=== PATIENT | male | born 1995 | race Caucasian/White ===

== ENCOUNTER 2017-07-02 16:02 | Emergency (ER) | payer OTHER, SELFPAY ==
[~2017-07-02] VITALS: Ht 180.3 cm; Wt 73.0 kg
[2017-07-02] MEDS ORDERED: diazePAM 5 MG TAB PO ONE (16:30)
[2017-07-02] MEDS ORDERED: NAPROXEN 250 MG TAB PO ONE (16:30)
[2017-07-02] MEDS ORDERED: CYCL10TA PO (17:37)
[2017-07-02] MEDS ORDERED: NAPR500T PO (17:37)
[2017-07-02 17:51] VITALS: BP 119/65
--- NOTE | 2017-07-02 17:57 | REP ---
CERVICAL SPINE, FOUR VIEWS: HISTORY: Neck pain. There is no acute fracture or subluxation. The intervertebral discs are normal in height. IMPRESSION:There is no acute fracture or subluxation. Signed by Joseph Price MD 07/02/2017 06:24 P
== END 2017-07-02 17:54 | disposition home or self-care (01) ==
LOC: M ED 16:02
DX: S16.1XXA Strain of muscle, fascia and tendon at neck level, initial encounter (principal); V43.52XA Car driver injured in collision with other type car in traffic accident, initial encounter; Y92.410 Unspecified street and highway as the place of occurrence of the external cause; Y93.9 Activity, unspecified; Y99.9 Unspecified external cause status; F17.200 Nicotine dependence, unspecified, uncomplicated

== ENCOUNTER 2017-12-20 12:55 | Emergency (ER) | payer SELFPAY ==
[2017-12-20 14:24] LABS: INFLUENZA A AMPLIFICATION POSITIVE (NEGATIVE); INFLUENZA B AMPLIFICATION NEGATIVE (NEGATIVE)
[2017-12-20] MEDS ORDERED: OSELTAMIVIR 6 MG/ML SUSP PO ×2 (14:45)
[2017-12-20] MEDS: OSELTAMIVIR PHOSPHATE 75 MG CAP (TAMIFLU) PO ×4 (15:04→18:57)
[2017-12-20] MEDS: ACETAMINOPHEN TAB 650MG DOSE (2X325MG) PO ×4 (15:04→18:58)
[2017-12-20] MEDS: ONDANSETRON 4MG/2ML VIAL (J2405) IV ×2 (15:54)
[2017-12-20] MEDS: NS 1,000 ML IV ×2 (15:54)
== END 2017-12-20 20:27 | disposition home or self-care (01) ==
LOC: M ED 12:55
DX: J09.X2 Influenza due to identified novel influenza A virus with other respiratory manifestations (principal); R11.10 Vomiting, unspecified; R51 Headache; E86.0 Dehydration; J45.909 Unspecified asthma, uncomplicated; F17.200 Nicotine dependence, unspecified, uncomplicated
CPT/HCPCS: J2405

== ENCOUNTER 2018-11-03 17:19 | Emergency (ER) | payer SELFPAY ==
[~2018-11-03] VITALS: Ht 177.8 cm; Wt 72.7 kg
[~2018-11-03 17:19] MED LIST: CYCL10TA PO; NAPR-50 PO; OSEL75CA PO; PROM25TA12 GT; PROM25TA12 OR
[2018-11-03] MEDS ORDERED: NICOTINE 21MG/24HR 1 EA TRANSDERMAL TD ONE (18:00)
[2018-11-03 18:16] LABS: HEMATOCRIT 50.7 % (42.0-52.0); HEMOGLOBIN 17.2 g/dl (13.5-17.5); MEAN CORPUSCULAR HEMOGLOBIN 30.9 pg (27.0-33.0); MEAN CORPUSCULAR HGB CONC 33.9 g/dl (32.0-36.5); PLATELET COUNT, AUTOMATED 173 10^3/uL (150-450); RED BLOOD COUNT 5.57 10^6/uL (4.30-6.10); WHITE BLOOD COUNT 8.2 10^3/uL (4.0-10.0)
[2018-11-03 18:44] LABS: AMPHETAMINES LEVEL URINE NEGATIVE (NEGATIVE); BARBITURATES URINE NEGATIVE (NEGATIVE); BENZODIAZEPINES URINE NEGATIVE (NEGATIVE); CANNABINOIDS URINE POSITIVE (NEGATIVE); COCAINE METABOLITE URINE NEGATIVE (NEGATIVE); METHADONE URINE NEGATIVE (NEGATIVE); OPIATES URINE NEGATIVE (NEGATIVE); PHENCYCLIDINE URINE NEGATIVE (NEGATIVE)
[2018-11-03 19:10] LABS: ACETAMINOPHEN LEVEL < 2.0 UG/ML (10.0-30.0); ALBUMIN 4.1 GM/DL (3.2-5.2); ALT/SGPT 19 U/L (12-78); BILIRUBIN,DIRECT 0.4 MG/DL (0.0-0.2); BILIRUBIN,TOTAL 1.2 MG/DL (0.2-1.0); BLOOD UREA NITROGEN 14 MG/DL (7-18); CALCIUM LEVEL 8.7 MG/DL (8.5-10.1); CARBON DIOXIDE LEVEL 29 MEQ/L (21-32); CHLORIDE LEVEL 106 MEQ/L (98-107); CREATININE FOR GFR 0.97 MG/DL (0.70-1.30); ETHYL ALCOHOL (ETHANOL) < 0.003 % (0.000-0.010); GLOMERULAR FILTRATION RATE > 60.0 (>60); GLUCOSE, FASTING 85 MG/DL (70-100); POTASSIUM SERUM 3.7 MEQ/L (3.5-5.1); SALICYLATE LEVEL < 1.7 MG/DL (5.0-30.0); SODIUM LEVEL 142 MEQ/L (136-145); THYROID STIMULATING HORMONE 0.718 uIU/ML (0.358-3.740)
[2018-11-03 19:32] VITALS: BP 122/72
--- NOTE | 2018-11-04 16:59 | ECGEPIP ---
Stationary ECG Study [facility] - ED Test Date: 2018-11-03 Pat Name: JESSE ROBERT Department: Room: - Gender: M Clinical Resource Coordinator: kyrie : 1995 Requested By: DAVI JORDAN Order Number: [id number] Reading MD: Sarina Rodriguez Measurements Intervals [place] Rate: 56 P: SC: 0 QRS: 87 QRSD: 96 T: 63 QT: 389 QTc: 378 Interpretive Statements SINUS BRADYCARDIA ABNORMAL RHYTHM ECG Electronically Signed On 11-04-2018 16:59:31 EST by Sarina Rodriguez
== END 2018-11-03 19:33 | disposition home or self-care (01) ==
LOC: M ED 17:19
DX: R45.851 Suicidal ideations (principal); F32.9 Major depressive disorder, single episode, unspecified; F17.210 Nicotine dependence, cigarettes, uncomplicated
CPT/HCPCS: 80048; 80076; 80307; 84443; 85027; 93005; 99284; G0480

== ENCOUNTER 2020-04-25 01:47 | Inpatient (IN) | payer SELFPAY ==
[~2020-04-25] VITALS: Ht 177.8 cm; Wt 72.7 kg
[~2020-04-25 01:47] MED LIST changes: +CYCL-707 PO; -CYCL10TA PO; -NAPR-50 PO; +NAPR-837 PO
[2020-04-25 02:23] LABS: HEMATOCRIT 55.4 % (42.0-52.0); HEMOGLOBIN 18.7 g/dl (13.5-17.5); MEAN CORPUSCULAR HEMOGLOBIN 31.3 pg (27.0-33.0); MEAN CORPUSCULAR HGB CONC 33.8 g/dl (32.0-36.5); MEAN CORPUSCULAR VOLUME 92.6 fl (80.0-96.0); PLATELET COUNT, AUTOMATED 220 10^3/uL (150-450); RED BLOOD COUNT 5.98 10^6/uL (4.30-6.10); WHITE BLOOD COUNT 11.7 10^3/uL (4.0-10.0)
[2020-04-25 02:40] LABS: AMPHETAMINES LEVEL URINE NEGATIVE (NEGATIVE); BARBITURATES URINE NEGATIVE (NEGATIVE); BENZODIAZEPINES URINE NEGATIVE (NEGATIVE); CANNABINOIDS URINE POSITIVE (NEGATIVE); COCAINE METABOLITE URINE NEGATIVE (NEGATIVE); METHADONE URINE NEGATIVE (NEGATIVE); OPIATES URINE NEGATIVE (NEGATIVE); PHENCYCLIDINE URINE NEGATIVE (NEGATIVE)
[2020-04-25 02:55] LABS: ACETAMINOPHEN LEVEL < 2.0 UG/ML (10.0-30.0); ALBUMIN 4.2 GM/DL (3.2-5.2); ALT/SGPT 19 U/L (12-78); BILIRUBIN,DIRECT 0.3 MG/DL (0.0-0.2); BILIRUBIN,TOTAL 0.6 MG/DL (0.2-1.0); BLOOD UREA NITROGEN 14 MG/DL (7-18); CALCIUM LEVEL 9.2 MG/DL (8.5-10.1); CARBON DIOXIDE LEVEL 27 MEQ/L (21-32); CHLORIDE LEVEL 109 MEQ/L (98-107); ETHYL ALCOHOL (ETHANOL) < 0.003 % (0.000-0.010); GLOMERULAR FILTRATION RATE > 60.0 (>60); GLUCOSE, FASTING 137 MG/DL (70-100); POTASSIUM SERUM 3.6 MEQ/L (3.5-5.1); SALICYLATE LEVEL 2.6 MG/DL (5.0-30.0); SODIUM LEVEL 140 MEQ/L (136-145); TOTAL PROTEIN 7.3 GM/DL (6.4-8.2)
[2020-04-25] MEDS ORDERED: NICOTINE 21MG/24HR 1 EA TRANSDERMAL TD ONE (04:45)
[2020-04-25] MEDS ORDERED: OLANZapine ORAL DISINTEGRATING TAB 5MG PO PRN (15:45)
[2020-04-25] MEDS ORDERED: MOM 30ML SUSPENSION UDC PO PRN (15:45)
[2020-04-25] MEDS ORDERED: MAALOX 30 ML SUSP *UDC PO PRN (15:45)
[2020-04-25] MEDS ORDERED: traZODone 50 MG TAB PO PRN (15:45)
[2020-04-25] MEDS ORDERED: ACETAMINOPHEN TAB 650MG DOSE (2X325MG) PO PRN (15:45)
[2020-04-25] MEDS ORDERED: ONDANSETRON 4 MG ORAL DISINTEGRATING TAB PO ONE (16:00)
[2020-04-25 17:10] VITALS: BP 125/71
[2020-04-26 06:22] VITALS: BP 98/78
[2020-04-26] MEDS: ESCITALOPRAM OXALATE 10 MG TAB (LEXAPRO) PO SCH (09:11)
[2020-04-26] MEDS: NICOTINE 21MG/24HR 1 EA TRANSDERMAL TD SCH (09:12)
--- NOTE | 2020-04-26 09:21 | MHHPEPDOC ---
[facility] History & Physical History and Physical DATE OF ADMISSION: Apr 25, 2020 at 15:35 HPI: Patient is a young man, [id number], who likely presented after making said statements in a moment of frustration. He was brought in as a caution. He is in a mental health hospital after making a threat to see his kids. He has no history of treatment for mental health, besides anger management classes when he was [id number]. Ed was upset before his hospitalization but denies depression.Ed owns a firearm .Ed denies hearing voices or suicide attempts MEDICATIONS: Currently taking Lexapro once admitted last night MEDICAL HISTORY: Patient has exercise-induced asthma and uses an inhaler as needed, as above for psychaitry FAMILY HISTORY: His father had depression due to deaths in their family Objective Appearance: Well nourished. Well groomed. Mood: Generally good. Euthymic. Appropriately reactive. Speech: fluid and spontaneous. Cognition: grossly intact. Thought Form: Linear and goal directed. Thought Content: No evidence of delusions. No evidence of aggressive or homicidal ideation. No evidence of suicidal ideation. No thoughts of self harm. Perception: associations intact. no signs of psychotic perceptions. Insight: good insight into symptoms and treatment options. Assessment F43.23 Adjustment disorder with mixed anxiety and depressed mood Plan Ed will be observed overnight and if he demonstrates no concerning behavior, a safe plan will be made. He will discharged at his request tomorrow. His length of stay is between 1-2 days. His treatment priorities are risk for suicide and effective coping. Vital Signs Vital Signs Date Time Temp Pulse Resp B/P (MAP) Pulse Ox O2 Delivery O2 Flow Rate FiO2 04/26/20 06:22 97.9 73 18 98/78 (85) Room Air 04/25/20 17:10 99 Medications No Active Prescriptions or Reported Meds Allergies Coded Allergies: No Known Allergies (Unverified , 07/02/17) STEFANY STACY DO Apr 26, 2020 09:21
--- NOTE | 2020-04-26 09:34 | ECGEPIP ---
[facility] - ED Test Date: 2020-04-25 Pat Name: JESSE ROBERT Department: Room: - Gender: Male Ways Operator: marcial : 1995 Requested By: BEN Ramon Order Number: [id number] Reading MD: Brent Medina Measurements Intervals [place] Rate: 57 P: 57 IA: 129 QRS: 81 QRSD: 96 T: 58 QT: 385 QTc: 377 Interpretive Statements SINUS BRADYCARDIA WITH SINUS ARRHYTHMIA SIMILAR TO 11/03/18 Electronically Signed on 04-26-2020 9:33:30 EDT by Brent Medina
--- NOTE | 2020-04-26 10:06 | HPEPDOC ---
General Date of Admission Apr 25, 2020 at 15:35 Date of Service: Apr 26, 2020 Chief Complaint The patient is a 24-year-old male admitted with a reason for visit of Unspecified Mood Disorder. Source: Patient Exam Limitations: No limitations Timing/Duration: Other (not applicable) Severity: Other (not applicable) Associated Symptoms: Other (suicidal, no medical complaints) History of Present Illness This is 24 years old white male with past medical history of no medical problems was admitted via ER to inpatient mental health unit with suicidal thoughts and ideas. Patient denies any medical complaints as well as he denies any suicidal or homicidal ideas at the present time Home Medications No Active Prescriptions or Reported Meds Allergies Coded Allergies: No Known Allergies (Unverified , 07/02/17) Past Medical History Medical History None Surgical History None Family History History of breast cancer on mother's side and history of lung cancer on father's side Social History * Smoker: current smoker Alcohol: Denies Drugs: marijuana A-FIB/CHADSVASC A-FIB History Current/History of A-Fib/PAF?: No Review of Systems Constitutional: Denies: Chills, Fever, Malaise, Night Sweats, Weakness, Fatigue, Weight Loss, Lethargy, Other Eyes: Denies: Pain, Vision change, Conjunctivae inflammation, Eyelid inflammation, Redness, Other ENT: Denies: Head Aches, Ear Pain, Dysphagia, Sinus Congestion, Post Nasal Drip, Sore Throat, Epistaxis, Other Symptoms Skin: Denies: Rash, Lesions, Jaundice, Bruising, Itching, Dry, Breakdown, Nail Changes, Other Pulmonary: Denies: Dyspnea, Cough, Pleuritic Chest Pain, Other Symptoms Cardiovascular: Denies: Chest Pain, Palpitations, Orthopnea, Paroxysmal Noc. Dyspnea, Edema, Lt Headedness, Other Symptoms Gastrointestinal: Denies: Nausea, Vomiting, Abdominal Pain, Diarrhea, Constipation, Melena, Hematochezia, Other Symptoms Genitourinary: Denies: Dysuria, Frequency, Incontinence, Hematuria, Retention, Other Symptoms Hematologic: Denies: Bruising, Bleeding Excessively, Petecchia, Purpura, Enlarged Lymph Nodes, Other Hematologic Endocrine: Denies: Polydipsia, Polyphagia, Polyuria, Heat Intolerance, Cold Intolerance, Other Endocrine Sx Musculoskeletal: Denies: Neck Pain, Back Pain, Shoulder Pain, Arm Pain, Hand Pain, Leg Pain, Foot Pain, Joint Pain, Muscle Pain, Spasms, Other Symptoms Neurological: Denies: Weakness, Numbness, Incoordination, Change in speech, Confusion, Seizures, Other Symptoms Psych: Denies: Mood Normal, Anxiety, Depression, Memory Issues, Thoughts of Self Harm, Anger, Thoughts of Harming Other, Other Psych Physical Examination General Exam: Positive: Alert, Cooperative Eye Exam: Positive: PERRLA, Conjunctiva & lids normal ENT Exam: Positive: Atraumatic, Mucous membr. moist/pink Neck Exam: Positive: Supple Chest Exam: Positive: Clear to auscultation, Normal air movement Heart Exam: Positive: Rate Normal, Normal S1, Normal S2 Abdomen Exam: Positive: Normal bowel sounds, Soft Extremity Exam: Positive: Normal pulses Skin Exam: Positive: Nl turgor and temperature Neuro Exam: Positive: Strength at 5/5 X4 ext, Sensation Intact, Cranial Nerves 3-12 NL Psych Exam: Positive: Mood NL, Oriented x 3 Vital Signs Vital Signs Date Time Temp Pulse Resp B/P (MAP) Pulse Ox O2 Delivery O2 Flow Rate FiO2 04/26/20 06:22 97.9 73 18 98/78 (85) Room Air 04/25/20 17:10 99 Laboratory Data Microbiology Microbiology 04/25/20 Respiratory Virus Panel (PCR) ([facility]) - Final, Complete Problems (1) Suicidal ideations Status: Acute Problem Text: Patient has been admitted to inpatient mental health unit Individual and group counseling, as per psychiatry Pharmaceutical intervention as per psychiatry Patient does not offers any medical complaints and does not have any medical history. Please call us as needed. (2) Depression Status: Chronic Problem Text: As per psychiatry Plan / VTE VTE Prophylaxis Ordered?: No VTE Exclusion Mechanical Proph: Low Risk for VTE VTE Exclusion Pharmacological: At Low Risk for VTE VANI MEDINA MD Apr 26, 2020 10:06
[2020-04-26 16:24] VITALS: BP 112/56
[2020-04-27 06:14] VITALS: BP 110/63
[2020-04-27] MEDS: ESCITALOPRAM OXALATE 10 MG TAB (LEXAPRO) PO SCH (09:12)
[2020-04-27] MEDS: NICOTINE 21MG/24HR 1 EA TRANSDERMAL TD SCH (09:13)
--- NOTE | 2020-04-27 09:45 | MHDSPDOC ---
[facility] Discharge Summary Discharge Summary DATE OF ADMISSION: Apr 25, 2020 at 15:35 DATE OF DISCHARGE: Apr 27, 2020 at 12:25 DISCHARGE DIAGNOSES: See Problem list below REASON FOR ADMISSION: 24-year-old man with a history of adjustment disorder presents after making ominous statements appoint counselor aid for the gun CONSULTANTS INVOLVED:[ None (basic hospitalist screening)] TREATMENT AND PROGRESS ON THE UNIT : Medication changes: started on Lexapro by on-call provider, patient reported made and tired and wasn't interested in continuing it once he left, reports wanting therapy instead Behavior on unit: friendly and amenable, denying suicidal thoughts Treatment attendance: attended Notable issues on presentation: guns were removed from home by police State on discharge: [stable] DISCHARGE ASSESSMENT: The patient a 24 year old man, with likely adjustment problems, presented to [facility], where they observe for 48 hours demonstrate no signs or symptoms of major depression other safety issues. Legal status considerations: The patient at the time of discharge did not meet criteria for involuntary admission/extension due to having a [normal] mental status exam, [fair] insight into the situation, They are engaged in the discharge process, as well as being friendly and amenable in behavioral control and havent been engaging in any observed concerning behavior or ideation recently. They decline voluntary extension/admission at this time and must be discharged in good lolita, as Im unable to make a case for holding the patient against their will. They may have historical risk factors of admissions and other interactions with psychiatry however, those are not modifiable from a clinical perspective. The patient will need to be discharged in good lolita. MENTAL STATUS EXAMINATION ON DISCHARGE: [General: Well dressed with good hygiene Speech: Spontaneous and fluid Thought processes: Linear and logical Thought content: Future orientated Abstract reasoning, and computation: Intact Description of associations: Intact Description of abnormal or psychotic thoughts:Denies any suicidal or homicidal ideation. Denies any auditory or visual hallucinations. Does not appear to be responding to internal stimuli. Does not appear to be endorsing any bizarre or paranoid ideation. Judgment: fair Insight: fair Orientation: Alert and orientated 3 Recent and remote memory: Intact Attention span and concentration: Intact Fund of knowledge: Adequate Mood: "okay" Affect: Euthymic with a full range] PLAN/FOLLOWUP ARRANGEMENTS: Follow up appointments made (PCP and MH in 5 days of D/C date) and safety plan completed. Safety Planning aspects completed prior to discharge [Family contact completed, educated on safe practices, instructed on removal and mitigation of dangerous means] [RN reviewed crisis hotline information and other aspects to empower patient to access care in interim before next appointment.] The amount of time spent in the coordination of care for this patient was approximately 30 minutes. Vital Signs/I&Os Vital Signs Date Time Temp Pulse Resp B/P (MAP) Pulse Ox O2 Delivery O2 Flow Rate FiO2 04/27/20 06:14 98.8 67 12 110/63 (79) Room Air 04/25/20 17:10 99 Laboratory Data Microbiology Microbiology 04/25/20 Respiratory Virus Panel (PCR) ([facility]) - Final, Complete Medications Scheduled Nicotine (Nicotine Patch) 21 Mg Patch.td24, 1 PATCH TD DAILY for tobacco for 30 Days, #30 Allergies Coded Allergies: No Known Allergies (Unverified , 07/02/17) Problems (1) Adjustment reaction, depressive, brief Status: Resolved Plan / VTE VTE Prophylaxis Ordered?: No STEFANY STACY DO Apr 27, 2020 09:45
[2020-04-27] MEDS ORDERED: NICO21PAT TD (10:10)
== END 2020-04-27 12:25 | disposition home or self-care (01) | DRG 754 ==
LOC: M ED 01:47 → M ED INP 15:35 → M PSY 17:08
PROVIDERS: ADMIT Psychiatry & Neurology Addiction Medicine; ATTEND Psychiatry & Neurology Addiction Medicine
DX: F43.21 Adjustment disorder with depressed mood (principal); R45.851 Suicidal ideations; F17.200 Nicotine dependence, unspecified, uncomplicated

== ENCOUNTER 2021-03-28 22:18 | Emergency (ER) | payer SELFPAY ==
[~2021-03-28] VITALS: Ht 177.8 cm; Wt 73.7 kg
[2021-03-28 22:18] VITALS: BP 128/74
[~2021-03-28 22:18] MED LIST changes: +NICO21PAT TD
== END 2021-03-29 00:43 | disposition left against medical advice (07) ==
LOC: M ED 22:18
DX: R50.9 Fever, unspecified (principal); M79.10 Myalgia, unspecified site; J45.909 Unspecified asthma, uncomplicated; F17.200 Nicotine dependence, unspecified, uncomplicated
CPT/HCPCS: 99282; U0003

== ENCOUNTER → 2021-05-16 | Outpatient (CLI) | payer SELFPAY | LOC: M OUTALCOH 09:03 | PROVIDERS: ATTEND Psychiatry & Neurology Psychiatry | DX: Z03.89 Encounter for observation for other suspected diseases and conditions ruled out (principal) ==

== ENCOUNTER 2021-06-01 11:06 | Outpatient (RCR) | payer SELFPAY | END 2021-06-02 | LOC: M OUTALCOH 11:06 | PROVIDERS: ATTEND Psychiatry & Neurology Psychiatry | DX: Z03.89 Encounter for observation for other suspected diseases and conditions ruled out (principal); F17.200 Nicotine dependence, unspecified, uncomplicated ==

== ENCOUNTER 2021-06-08 11:00 | Outpatient (RCR) | payer SELFPAY | END 2021-07-03 | LOC: M OUTALCOH 11:00 | PROVIDERS: ATTEND Psychiatry & Neurology Psychiatry | DX: Z03.89 Encounter for observation for other suspected diseases and conditions ruled out (principal); F17.200 Nicotine dependence, unspecified, uncomplicated ==

== ENCOUNTER 2021-06-20 15:16 | Outpatient (RCR) | payer SELFPAY | END 2021-07-03 | LOC: M OUTALCOH 15:16 | PROVIDERS: ATTEND Psychiatry & Neurology Psychiatry | DX: Z03.89 Encounter for observation for other suspected diseases and conditions ruled out (principal); F17.200 Nicotine dependence, unspecified, uncomplicated ==